=== PATIENT | male | born 1990 | race African-American/Black ===

== ENCOUNTER 2019-11-15 14:38 | Emergency (ER) | payer MEDICAID, OTHER ==
[2019-11-15 14:45] VITALS: BP 137/68
--- NOTE | 2019-11-15 14:53 | ED Physician Documentation ---
PD HPI HEENT FB - Chief complaint Chief Complaint: Heent - History obtained from History obtained from: Patient (Swollen painful lump near the right ear that formed about 36 hours ago. No fevers, sore throat, dental ache, earache otherwise, or respiratory symptoms.) Review of Systems Constitutional: denies: Fever, Chills, Myalgias, Fatigue Ears: denies: Tinnitus/ringing Nose: denies: Rhinorrhea / runny nose Throat: denies: Dental pain / toothache, Sore throat PD PAST MEDICAL HISTORY - Allergies Allergies/Adverse Reactions: Allergies Allergy/AdvReac Type Severity Reaction Status Date / Time codeine Allergy Unknown Verified 11/15/19 14:42 PD ED PE NORMAL - Vitals Vital signs reviewed: Yes - General General: Alert and oriented X 3, No acute distress - HEENT HEENT: Other (There is a tender preauricular lymph node on the right without dental infection, abnormality of the TM, the parotid is not enlarged. No evidence of infections or cellulitis about the face or neck. And he says he said no recent cat scratches.) - Neck Neck: Supple, no meningeal sign, No bony TTP - Neuro Neuro: Alert and oriented X 3, Normal speech Results - Vitals Vitals: Vital Signs - 24 hr 11/15/19 14:42 Temperature 36.5 C Heart Rate 72 Respiratory 16 Rate Blood Pressure 137/68 H O2 Saturation 100 Oxygen O2 Source Room air Departure - Departure Disposition: 01 Home, Self Care Clinical Impression: Lymphadenopathy Condition: Good Record reviewed to determine appropriate education?: Yes Instructions: Lymphadenopathy Comments: Most lymph nodes like this are benign and will go away on their own, commonly due to a viral condition, no specific treatment is necessary at this juncture but I recommend following up with an ear nose and throat doctor in about 2 weeks on return home if it is persistent for evaluation for potential biopsy.
== END 2019-11-15 15:01 | disposition home or self-care (01) ==
LOC: ED 14:38
DX: R59.0 Localized enlarged lymph nodes (principal)
CPT/HCPCS: 99281; 99283